=== PATIENT | female | born 1935 | race Two or more races ===

== ENCOUNTER → 2020-11-10 | Outpatient (CLI) | payer MEDICARE, OTHER ==
--- NOTE | 2020-11-10 11:38 | RAD ---
EXAM: Chest, 2 views. HISTORY: Rib pain. COMPARISON: None. FINDINGS: 2 views of the chest are obtained. There is bilateral infrahilar atelectasis or interstitia l infiltrate. There is no pleural effusion or pneumothorax. The heart is normal in size. There is josefina pected biapical pleural thickening due to scarring. There is degenerative change throughout the visua lized spine. IMPRESSION: Bilateral infrahilar atelectasis or interstitial infiltrate. Electronically signed by: Claudia Levy MD (11/10/2020 11:36 AM) [id number]
--- NOTE | 2020-11-10 11:40 | RAD ---
EXAM: Right foot, 3 views. HISTORY: Pain. COMPARISON: None. FINDINGS: 3 views of the right foot are obtained. There is no acute fracture, dislocation or subluxat ion. There is first metatarsal phalangeal joint spurring. There is soft tissue prominence and calcifi cation needle to the first metatarsal head suggesting a bunion. There are vascular calcifications. IMPRESSION: 1. 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 2. No acute osseous finding. Electronically signed by: Claudia Levy MD (11/10/2020 11:37 AM) [id number]
== END ==
LOC: RAD 11:15
PROVIDERS: ATTEND Family Medicine
DX: M19.071 Primary osteoarthritis, right ankle and foot (principal); M25.871 Other specified joint disorders, right ankle and foot; R07.81 Pleurodynia
CPT/HCPCS: 71046; 73630

== ENCOUNTER → 2021-01-13 | Outpatient (CLI) | payer MEDICARE, OTHER ==
--- NOTE | 2021-01-13 10:23 | RAD ---
EXAM: DUAL ENERGY X-RAY ABSORPTIOMETRY (DEXA). HISTORY: Postmenopausal screening. FINDINGS: The lowest measured T-score is -3.5 in the right femoral neck, based on a bone mineral dens ity of 0.496 g/cm^2. Refer to the worksheets for full detail. No comparison examinations are available. IMPRESSION: Osteoporosis. Bone mineral density yields a T-score of -2.5 or less. Fracture risk is high. FRAX was not calculated. METHODOLOGY: Dual energy x-ray absorptiometry was performed to measure bone mineral density. The foll owing analysis is based on the 2019 Official Positions of the International Society for Clinical Dens itometry: Measurements of the hips and the average of L1-L4 are preferred. When the spine and/or hip cannot be feasibly measured or interpreted, or in the setting of hyperparathyroidism, distal radial bone minera l density may be measured. The lumbar spine T-score is based on the average bone mineral density of L1-L4. In the setting of art ifact or anatomic abnormality, some lumbar levels may be excluded, and the remaining levels used for calculation. A single lumbar level is not used for diagnosis, and if only a single level is available for assessment, another anatomic site will be used to assign a diagnosis. The hip T-score is based on the bone mineral density measurement of the femoral neck or total proxima l femur of either side, whichever is lowest. Bilateral mean values are not used for diagnosis. The forearm T-score is derived from 33% of the distal radius of the nondominant forearm. For postmenopausal and perimenopausal women, and men age 50 or older, of all ethnic groups, T-scores are calculated through comparison of the current measurement with the NHANES III database standard fo r females aged 20-29 years. The lowest T-score of the evaluated anatomic sites is used to a ssign a diagnosis based on the World Health Organization densitometric classification. In premenopausal females and males younger than age 50, a Z-score is calculated based on population s pecific reference data for patient sex and self-reported ethnicity. Electronically signed by: Jonas Cartwright MD (01/13/2021 10:20 AM) [id number]
== END ==
LOC: DXRAD 09:32
PROVIDERS: ATTEND Family Medicine
DX: M81.0 Age-related osteoporosis without current pathological fracture (principal); E21.0 Primary hyperparathyroidism
CPT/HCPCS: 77080

== ENCOUNTER → 2021-01-18 | Outpatient (CLI) | payer MEDICARE, OTHER ==
--- NOTE | 2021-01-18 16:50 | RAD ---
EXAM: THYROID ULTRASOUND. HISTORY: Primary hyperparathyroidism. COMPARISON: None. FINDINGS: Sonographic evaluation of the thyroid gland was performed and evaluated using ACR TI-RADS c riteria. Right lobe: The right lobe measures 5.1 x 1.7 x 1.5 cm. The parenchyma is homogeneous. An isoechoic s olid nodule in the interpolar region measures 1.1 x 1.0 x 1.0 cm. A mostly cystic nodule measures 6 x 5 mm and appears benign. Left lobe: The left lobe measures 5.1 x 1.6 x 1.3 cm. The parenchyma is homogeneous without focal les ions. A hypoechoic region of soft tissue deep to the left thyroid upper pole spans 1.9 x 0.8 x 0.4 cm . Isthmus: The isthmus measures 2 mm. IMPRESSION/RECOMMENDATION: 1. A 1.9 x 0.8 cm region of hypoechoic soft tissue along the deep surface of the left thyroid upper p ole may represent a lymph node versus a large parathyroid adenoma. Correlate with scintigraphy and ot her data. 2. A 1.1 cm isoechoic nodule in the right lobe is TI-RADS 3 and requires no further follow-up at this size. Electronically signed by: Jonas Cartwright MD (01/18/2021 4:47 PM) [id number]
== END ==
LOC: US 15:22
PROVIDERS: ATTEND Family Medicine
DX: E04.2 Nontoxic multinodular goiter (principal); E21.0 Primary hyperparathyroidism
CPT/HCPCS: 76536